=== PATIENT | female | born 1985 | race Caucasian/White ===

== ENCOUNTER 2020-05-19 13:50 | Emergency (ER) | payer OTHER ==
[2020-05-19] MEDS ORDERED: NORMAL SALINE 1000 ML 1,000 ML IV ONE (14:07)
--- NOTE | 2020-05-19 14:09 | ER Document Report ---
ED Medical Screen (RME) - General Chief Complaint: Abscess Stated Complaint: ABSCESS/VAGINAL AREA Time Seen by Provider: 05/19/20 14:04 Primary Care Provider: MARGE GALARZA MD [Primary Care Provider] - Follow up as needed Notes: HPI: 34-year-old female presenting for swollen vagina. Patient states that 5 days ago she began having swelling of the vulva and now has increased swelling over the right labia. Reports moderate pain. Saw her PCP yesterday who did an exam and stated that they could not feel anything definitive did recommend that she follow-up with [facility]. Patient states swelling is much worse today. Patient states that when she arrived to the emergency department she began to get very dizzy and lightheaded. PHYSICAL EXAMINATION: Patient blood pressure 82/52. exam deferred in triage she has no tenderness on palpation over the pelvis but does appear mildly uncomfortable. I have greeted and performed a rapid initial assessment of this patient. A comprehensive ED assessment and evaluation of the patient, analysis of test results and completion of medical decision making process will be conducted by an additional ED providers. - Related Data Allergies/Adverse Reactions: No Known Allergies Allergy (Verified 05/19/20 14:04) Doctor's Discharge - Discharge Referrals: MARGE GALARZA MD [Primary Care Provider] - Follow up as needed
[2020-05-19 14:28] LABS: ABSOLUTE EOSINOPHILS # (AUTO) 0.1 10^3/uL (0.0-0.6); ABSOLUTE LYMPHOCYTES (AUTO) 1.2 10^3/uL (0.5-4.7); ABSOLUTE MONOCYTES (AUTO) 0.8 10^3/uL (0.1-1.4); ABSOLUTE NEUT (AUTO) 11.9 10^3/uL (1.7-8.2); BASOPHILS % (AUTO) 0.2 % (0-2); EOSINOPHILS % (AUTO) 0.7 % (0-6); HEMATOCRIT 39.5 % (36.0-47.0); HEMOGLOBIN 13.6 g/dL (12.0-15.5); LYMPHOCYTES % (AUTO) 8.4 % (13-45); MEAN CORPUSCULAR HEMOGLOBIN 35.2 pg (27.0-33.4); MEAN CORPUSCULAR HGB CONC 34.5 g/dL (32.0-36.0); MEAN CORPUSCULAR VOLUME 102 fl (80-97); MONOCYTES % (AUTO) 5.9 % (3-13); PLATELET COUNT 193 10^3/uL (150-450); RED BLOOD COUNT 3.87 10^6/uL (3.72-5.28); RED CELL DISTRIBUTION WIDTH 12.9 % (11.5-14.0); SEGMENTED NEUTROPHILS % (AUTO) 84.8 % (42-78); TOTAL CELLS COUNTED % (AUTO) 100 %
[2020-05-19 14:32] LABS: APPEARANCE,URINE SLIGHTLY-CLOUDY; BILIRUBIN,URINE NEGATIVE (NEGATIVE); COLOR,URINE YELLOW; GLUCOSE, URINE NEGATIVE (NEGATIVE); KETONES,URINE NEGATIVE (NEGATIVE); LEUKOCYTE ESTERASE,URINE NEGATIVE (NEGATIVE); NITRITE,URINE NEGATIVE (NEGATIVE); PROTEIN,URINE 30 mg/dL (NEGATIVE); URINE SPECIFIC GRAVITY 1.019
[2020-05-19 14:52] LABS: ALKALINE PHOSPHATASE 64 U/L (38-126); ANION GAP 7 (5-19); ASPARTATE AMINO TRANSFERASE 36 U/L (14-36); BILIRUBIN,TOTAL 0.6 mg/dL (0.2-1.3); BLOOD UREA NITROGEN 12 mg/dL (7-20); CALCIUM 9.2 mg/dL (8.4-10.2); CARBON DIOXIDE 24 mmol/L (22-30); CHLORIDE 105 mmol/L (98-107); GLUCOSE 106 mg/dL (75-110); POTASSIUM 4.1 mmol/L (3.6-5.0); TOTAL PROTEIN 7.4 g/dL (6.3-8.2)
--- NOTE | 2020-05-19 16:22 | ER Document Report ---
ED General <ADARSH SMITH - Last Filed: 05/19/20 17:53> - Related Data Home Medications: control. atb <EUGENIO VASQUES - Last Filed: 05/19/20 18:42> - General Chief Complaint: Vaginal Pain Stated Complaint: ABSCESS/VAGINAL AREA Time Seen by Provider: 05/19/20 14:04 Primary Care Provider: MARGE GALARZA MD [ACTIVE STAFF] - Follow up as needed - HPI Notes: Patient is a 34-year-old female presents to the emergency department for evaluation of swelling and pain in the left labial region. She states she had "a lot of sex" over the weekend. She states that on Saturday she noted a sore spot. On Saturday she noted it seemed more swollen. On Saturday she thought it was still more swollen, so she went to her primary care doctor. Her primary care doctor said that she "did not feel anything" but she should go to an OB or an ER if it was not better the next day. The patient states that today it is "twice as big and hurts more than anything." She states she had some subjective fevers and body aches over the last several days, but nothing in the last 24 hours. She was placed on antibiotics by her primary care provider. Otherwise, she is eating and drinking normally. Urinating and defecating normally. No other acute complaints or concerns. (EUGENIO VASQUES) - Related Data Allergies/Adverse Reactions: No Known Allergies Allergy (Verified 05/19/20 14:04) Past Medical History - General Information source: Patient - Social History Smoking Status: Former Smoker Chew tobacco use (# tins/day): No Frequency of alcohol use: Social Drug Abuse: None Family History: Other - "Blood clots" Patient has homicidal ideation: No <EUGENIO VASQUES - Last Filed: 05/19/20 18:42> Review of Systems - Review of Systems Constitutional: See HPI Female Genitourinary: See HPI -: Yes All other systems reviewed and negative <EUGENIO VASQUES - Last Filed: 05/19/20 18:42> Physical Exam - Vital signs Vitals: Temp 99.0 F 05/19/20 14:05 Course - Laboratory Result Diagrams: 05/19/20 14:15 05/19/20 14:15 <ADARSH SMITH - Last Filed: 05/19/20 17:53> - Laboratory Result Diagrams: 05/19/20 14:15 05/19/20 14:15 <EUGENIO VASQUES - Last Filed: 05/19/20 18:42> - Re-evaluation Re-evalutation: 05/19/20 18:38 Patient presents to the emergency department for evaluation of swelling in the vaginal area. She has findings consistent with a Bartholin's duct abscess. I&D with Word catheter placement by nurse practitioner Adarsh Harrington. Please see his procedure note. Patient tolerated this well. She is already on antibiotics. I will send her home with a small amount of pain medication and follow-up with her OB. She is to return to the ED with worsening or new mark rning symptoms of any sort. (EUGENIO VASQUES) - Vital Signs Vital signs: Temp Pulse Resp BP Pulse Ox 99.0 F 72 18 111/72 99 05/19/20 14:55 05/19/20 14:55 05/19/20 14:55 05/19/20 15:43 05/19/20 14:55 - Laboratory Laboratory results interpreted by me: 05/19/20 05/19/20 05/19/20 14:15 14:15 14:15 WBC 14.0 H MCV 102 H MCH 35.2 H Lymph % (Auto) 8.4 L Absolute Neuts (auto) 11.9 H Seg Neutrophils % 84.8 H Sodium 136.2 L Urine Protein 30 H Urine Urobilinogen 4.0 H Urine Ascorbic Acid 40 H Procedures - Incision and Drainage Right Lower Labia Time completed: 17:54 - right Bartholins Cyst Type: Simple Anesthetic type: 2% Lidocaine mL's of anesthetic: 1 Blade size: 11 I&D procedure: Betadine prep applied, Other - Word Catheter Incision Method: Incision made by scalpel Amount/type of drainage: 10 mL purulent <ADARSH SMITH - Last Filed: 05/19/20 17:53> - Incision and Drainage Right Lower Labia Notes: 05/19/20 17:54 female lot attendant present for procedure (ADARSH SMITH) Discharge <ADARSH SMITH - Last Filed: 05/19/20 17:53> <FRIES,LUNDYN M - Last Filed: 05/19/20 18:42> - Discharge Clinical Impression: Bartholin's gland abscess Condition: Stable Disposition: HOME, SELF-CARE Instructions: Bartholin Gland Cyst or Abscess ([facility]) Additional Instructions: Continue your home antibiotics as prescribed. Take Jasper as needed for severe pain. Follow-up with your OB in 1 to 2 days. If you develop fevers, increased pain, vomiting, or any other new or concerning symptoms, please return immediately to the emergency department for evaluation. Referrals: MARGE GALARZA MD [ACTIVE STAFF] - Follow up as needed
[2020-05-19] MEDS ORDERED: ONDANSETRON HCL INJ/PF 4 MG/2 ML SDV IV ONE (16:41)
[2020-05-19] MEDS ORDERED: MORPHINE SULFATE 10 MG/ML INJ IV ONE ×2 (16:41→17:40)
[2020-05-19] MEDS ORDERED: NORMAL SALINE 1000 ML 1,000 ML IV PRN (16:44)
[2020-05-19] MEDS ORDERED: LIDOCAINE 4% TOPICAL SOLN 50 ML TOP ONE (16:58)
[2020-05-19] MEDS ORDERED: LIDOCAINE 2% INJ (20 MG/ML) 20 ML MDV ONE (17:37)
[2020-05-19 19:12] VITALS: BP 122/67
== END 2020-05-19 19:13 | disposition home or self-care (01) ==
LOC: ER 13:50
DX: N75.1 Abscess of Bartholin's gland (principal); Z87.891 Personal history of nicotine dependence
CPT/HCPCS: 96376; 99283; 96361; 96374; 96375; 36415; 85025; 81025; 80053; 81001; 56420; J3490 ×2; J2270; J2405; J7030

== ENCOUNTER → 2020-11-07 | Outpatient (CLI) | payer OTHER ==
--- NOTE | 2020-11-07 11:45 | ER [facility] ASSESSMENT REPORT ---
Intake - In the Last 14 days Have you traveled outside [place]?: No Have you been in close contact with someone CONFIRMED: No Worked in Healthcare?: No - Symptoms Subjective Fever(Wisdom feverish): No Chills: No Muscule Aches: No Runny Nose: Yes Sore Throat: No Cough (New or worsening chronic cough): Yes Shortness of breath: No Nausea or Vomiting: No Headache: No Abdominal Pain: No Diarrhea(3 or more loose stools in last 24 hours): No - Do you have any of the following Chronic lung disease: Asthma or emphysema or COPD: No Cystic Fibrosis: No Diabetes: No High Blood Pressure: No Cardiovascular Disease: No Chronic Kidney Disease: No Chronic Liver Disease: No Chronic blood disorder like Sickle Cell Disease: No Weak immune system due to disease or medication: No Neurologic condition that limits movement: No Developmental delay - Moderate to Severe: No Recent (within past 2 weeks) or current : No Morbid Obesity (>100 pounds over ideal weight): No - Objective Temperature: 98.7 F Pulse Rate: 69 Respiratory Rate: 16 Blood Pressure: 128/81 O2 Sat by Pulse Oximetry: 97 Objective: Given above, testing performed: If Testing Performed: Test Specimen Type Sent to General - General Information source: Patient Notes: Patient presents to the [facility] for screening for the coronavirus - Related Data Allergies/Adverse Reactions: No Known Allergies Allergy (Verified 05/19/20 14:04) Past Medical History - General Information source: Patient - Social History Family History: Other - "Blood clots" - Medical History Medical History: Negative Surgical Hx: Negative Physical Exam - Notes Notes: The patient was evaluated during the global Covid 19 pandemic, and that diagnosis was suspected/considered upon their initial presentation. Their evaluation and testing was consistent with current guidelines for patients who present with complaints or symptoms that may be related to Covid 19. Full physical exam could not be performed due to covid 19 isolation protocols. Constitutional: Nontoxic appearance, no acute distress Eyes: Nonicteric, extraocular movements intact, sclera clear ENT: Posterior pharynx without exudates Cardiovascular: Heart rate and rhythm regular Respiratory: Breath sounds clear bilaterally, nonlabored breathing, no use of accessory muscles, no tachypnea Gastrointestinal: Abdomen not distended Muculoskeletal: Moves all extremities well Skin: Normal color Neuro: Awake alert oriented, normal speech Psych: Normal mood and affect Diagnostic Results Laboratory Results: Patient presents with upper respiratory symptoms worrisome for possible Covid 19. Patient does not have emergency worrying symptoms such as difficulty breathing, shortness of breath, chest pain, pressure, confusion or cyanosis. Patient appears suitable for discharge as they are not of an advanced age, do not have any chronic medical conditions such as diabetes, CAD, immune deficiency, chronic lung disease or chronic kidney disease. Patient's vital signs are stable and patient is nontoxic in appearance. Good return precautions have been discussed with patient, patient verbalized understanding and is agreeable with discharge plan of care at this time. Patient Education/Counseling Counseling/Education: Patient was provided with discharge information including: As a person under investigation for Covid 19, the [place] department of Health and Human Services, division of public health advises you to adhere to the following guidance until your test results are reported to you. If your test result is positive, you will receive additional information from your provider and your local health department at that time. Remain at home until you are cleared by the health provider or public health authorities. Keep a log of visitors to your home, notify any visitors to your home of your isolation status. If you plan to move to a new address or leave the county, notify the local health department in your County. Call your doctor or seek care if you have an urgent medical need. Before seeking medical care, call ahead to get instructions from the provider before arriving at the medical office clinic or hospital. Notify them that you are being tested for the virus that causes Covid 19 so that arrangements can be made, as necessary, to prevent transmission to others in the healthcare setting. Next, notify the local health department in your county. If a medical emergency arises and you need to call 911, inform the first responders that you are being tested for the virus that causes Covid 19. Next, notify the local health department in your county. [facility] Discharge - Discharge Clinical Impression: Encounter for screening laboratory testing for COVID-19 virus Condition: Stable Disposition: Home; Selfcare
[2020-11-07 13:00] VITALS: BP 128/81
== END ==
LOC: RDC 11:18
PROVIDERS: ATTEND Nurse Practitioner Family
DX: Z20.828 Contact with and (suspected) exposure to other viral communicable diseases (principal); R05 Cough; R09.89 Other specified symptoms and signs involving the circulatory and respiratory systems
CPT/HCPCS: 99201; 99211; U0003; C9803; 87635